=== PATIENT | male | born 1970 | race Caucasian/White ===

== ENCOUNTER 2022-06-26 06:51 | Day surgery (SDC) | payer MEDICAID ==
[~2022-06-26] VITALS: Ht 182.9 cm; Wt 110.2 kg
[2022-06-26] MEDS ORDERED: fentaNYL CITRATE/PF 100 MCG/2 ML AMP ONE (07:32)
[2022-06-26] MEDS ORDERED: MIDAZOLAM HCL 5 MG/5 ML VIAL ONE (07:32)
[2022-06-26] MEDS ORDERED: DIPHENHYDRAMINE INJ 50 MG/ML VIAL ONE (09:06)
[2022-06-26 16:58] VITALS: BP_SYST 134
== END 2022-06-26 10:20 | disposition home or self-care (01) ==
LOC: SDS 06:51 → SMU 06:51 → SDS 10:20
PROVIDERS: ATTEND Internal Medicine
DX: R19.4 Change in bowel habit (principal); K64.8 Other hemorrhoids; I10 Essential (primary) hypertension; E78.5 Hyperlipidemia, unspecified; E11.9 Type 2 diabetes mellitus without complications; Z20.822 Contact with and (suspected) exposure to COVID-19; Z79.82 Long term (current) use of aspirin; Z79.4 Long term (current) use of insulin; Z79.899 Other long term (current) drug therapy
CPT/HCPCS: 36415 ×2; 45378; 87426; 82962; 99152; U0003; G0378; J1200; J2250; J3010